=== PATIENT | male | born 1955 | race Caucasian/White ===

== ENCOUNTER 2017-02-24 17:18 | Inpatient (IN) | payer BC ==
[~2017-02-24] VITALS: Ht 170.2 cm; Wt 112.9 kg
--- NOTE | ~2017-02-24 | ECH ---
Transthoracic Echocardiography Report (TTE) Demographics Patient Name SABRINA DON Date of Study 02/26/2017 Patient Number [id number] Visit Number [id number] Date of 1955 Room Number 408 Accession Number [id number] Gender Male Age 61 year(s) Referring Marcela AGOSTO Commissions Specialist Barbara Garcia Physician Murray [facility] Thomas Jones MD Physician Interpreting Marcela AGOSTO Network Designer Physician Murray Supervising Ordering Physician Marcela AGOSTO MD/MARI Gao Nurse Stress Film Flat Inspector Conclusions Contractility Score Summary Normal Left Ventricular contractility was noted. Summary Technically adequate exam. The estimated left ventricular ejection fraction is 60%. The left ventricle is mildly dilated . Mild biatrial enlargement. The aortic valve is moderately sclerotic. The aortic valve appears to be bicuspid. There is mild to moderate aortic regurgitation by color Doppler. The ascending aorta appears moderately dilated. The maximum diameter measures 4.7 cm. Recommendation The patient will be given the results of this study by the physician who ordered the exam. Procedure Type of Study TTE procedure:Echo Complete SF. Procedure Date Date: 02/26/2017 Start: 01:39 PM Technical Quality: Adequate visualization Indications:Supraventricular Tachycardia. Appropriate Use Criteria: 9 Height: 67 inches Weight: 253 pounds BSA: 2.23 m Rhythm: NSR HR: 72 bpm BP: 122/65 mmHg M-Mode/2D Measurements LV Diastolic Dimension: 6.04 cm LV Systolic Dimension: 3.88 cm LV Septum Diastolic: 0.78 cm LV PW Diastolic: 0.84 cm AO Root Dimension: 3.33 cm Cardiac Output: 6.7 l/min LA Dimension: 2.3 cm Cardiac Index: 3 l/min*m RV Diastolic Dimension: 3.61 cm LA volume index: 40 ml/m LVOT: 2.06 cm LVOT VTI: 27.93 cm RV Base: 3 cm LV Stroke volume: 93.04 ml RV Mid: 2.1 cm LV Stroke volume index: 41.72 ml/m TAPSE: 3.5 cm TDI-S': 19 cm/s Doppler Measurements AV Peak Velocity: 2.2 m/s MV Peak E-Wave: 1.37 m/s AV Peak Gradient: 19.36 mmHg MV Peak A-Wave: 0.72 m/s AV Mean Gradient: 10.87 mmHg MV E/A Ratio: 1.91 LVOT Peak Velocity: 1.15 m/s MV P1/2t: 66.1 msec AV Area (Continuity):2.02 cm MV Deceleration Time: 198.9 msec TR Velocity:2.81 m/s MV Area (PHT): 3.33 cm TR Gradient:31.5 mmHg PV Peak Velocity: 1.04 m/s Estimated RAP:3 mmHg PV Peak Gradient: 4.34 mmHg Estimated RVSP: 35 mmHg Estimated PASP: 34.5 mmHg E' Septal Velocity: 0.1 m/s A' Septal Velocity: 0.09 m/s E' Lateral Velocity: 0.1 m/s A' Lateral Velocity: 0.13 m/s RA Area: 19.66 cm Findings Left Ventricle The left ventricle is mildly dilated . Diastolic assessment reveals normal relaxation. Right Ventricle Normal right ventricle structure and function. Left Atrium The left atrium is mildly dilated by LA volume index measurement. Right Atrium The right atrium is mildly dilated. Mitral Valve Normal mitral valve structure and function. Trivial mitral regurgitation by color Doppler. Aortic Valve The aortic valve is moderately sclerotic. The aortic valve appears to be functionally bicuspid. There is mild to moderate aortic regurgitation by color Doppler. Tricuspid Valve Normal tricuspid valve structure and function. Trivial tricuspid regurgitation by color Doppler. Normal pulmonary pressures. Pulmonic Valve Normal pulmonic valve structure and function. Pericardial Effusion No evidence of pericardial effusion. Miscellaneous The ascending aorta appears moderately dilated. The maximum diameter measures 4.7 cm. Pleural Effusion No evidence of pleural effusion. Contractility Score LV regional wall motion:(0-Non visualized 1-Normal 2-Hypokinesis 3-Akinesis 4-Dyskinesis 5-Aneurysm) Signature
[2017-03-01] MEDS ORDERED: OMEPRAZOLE40 MG PO (13:26)
[2017-03-01] MEDS ORDERED: NORCO 5-325 TA1 EACH PO (13:26)
[2017-03-01] MEDS ORDERED: TOPROL XL200 MG PO (13:26)
[2017-03-01] MEDS ORDERED: NEURONTIN DPS600 MG PO (13:26)
[2017-03-01] MEDS ORDERED: COUMADIN10 MG PO (13:27)
[2017-03-01] MEDS ORDERED: FLEXERIL-DPS10 MG PO (13:27)
[2017-03-01] MEDS ORDERED: COUMADIN7.5 MG PO (13:27)
[2017-03-01] MEDS ORDERED: COLACE-DPS100 MG PO (13:28)
[2017-03-01] MEDS ORDERED: FISH OIL OMEGA1 EAC1 PO (13:28)
[2017-03-01] MEDS ORDERED: VITAMIN B-1250 MG PO (13:29)
[2017-03-01] MEDS ORDERED: CLARITIN DPS10 MG PO (13:29)
[2017-03-01] MEDS ORDERED: IRON18 MG PO (13:29)
[2017-03-01] MEDS ORDERED: VITAMIN D31000 UNI1 PO (13:30)
[2017-03-01] MEDS ORDERED: CENTRUM SILVER1 EAC1 PO (13:30)
[2017-03-01] MEDS ORDERED: TAMBOCOR DPS50 MG PO (13:30)
--- NOTE | 2017-03-10 15:50 | DS ---
ADMIT: 02/24/2017 RM/LOC: 408 [facility] MR#: [id number] [address] [place] [id number] SABRINA DON [address] [place] [address] Discharge Summary SEX: M AGE: 61 : 1955 ADMISSION DATE: 02/24/2017 DISCHARGE DATE: 02/28/2017 ATTENDING AT TIME OF DISCHARGE: Marshall Osorio MD CONSULTATIONS: Cardiology. PROCEDURES: None. FINAL DIAGNOSES: 1. Postop ileus with possible small bowel obstruction. 2. Bicuspid aortic valve. 3. GERD (gastroesophageal reflux disease). 4. SVT (supraventricular tachycardia), A fib (atrial fibrillation) with RVR (rapid ventricular response). REASON FOR ADMISSION: The patient is a 61-year-old gentleman, overall was admitted for just not feeling well. Abdominal pain. Dehydration and intractable vomiting, ileus. Please see admission H and P for full details. HOSPITAL COURSE: The patient was admitted. Given IV fluid resuscitation, bowel rest, overall slowly and steadily improved and was able to eat a general diet prior to discharge. While hospitalized, did have an episode of SVT. Was seen in consultation by Cardiology. This resolved and did not recur during hospitalization. Plan is for followup with EP Cardiology at discharge. The patient overall felt safe and stable for discharge on day of discharge. DISCHARGE INSTRUCTIONS: Please see discharge MAR, which I have reviewed. For discharge meds, please see discharge MAR. He is going to be on: 1. Coumadin. 2. Flecainide 50 mg p.o. b.i.d. 3. Metoprolol. ADMIT: 02/24/2017 RM/LOC: 408 [facility] MR#: [id number] [address] [place], [place] [id number] SABRINA DON N [address] [place] [address] Discharge Summary SEX: M AGE: 61 : 1955 4. Hydrocodone. 5. Docusate. 6. Fish oil. 7. Iron. 8. Claritin. 9. Vitamin B1. 10.Vitamin D3. 11.Centrum Silver. 12.Gabapentin. He will see Dr. Guzman in 7-10 days. He will see [facility] per their plan to follow up with Cardiology, EP Cardiology as planned. Marshall Osorio MD/ pao JOB #: [id number] CC: Mekhi Guzman MD, Attending Physician Mekhi Guzman MD, Family Physician
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
== END 2017-02-28 11:05 | disposition home or self-care (01) | DRG 389 ==
LOC: 4PCU 17:18 → 5MS 17:18 → 4PCU 02-25 19:17
PROVIDERS: ADMIT Internal Medicine
DX: K56.60 Unspecified intestinal obstruction (principal); I47.1 Supraventricular tachycardia; G62.9 Polyneuropathy, unspecified; M48.02 Spinal stenosis, cervical region; Q23.1 Congenital insufficiency of aortic valve; I48.91 Unspecified atrial fibrillation; I10 Essential (primary) hypertension; E86.0 Dehydration; J44.9 Chronic obstructive pulmonary disease, unspecified; K21.9 Gastro-esophageal reflux disease without esophagitis; N40.0 Benign prostatic hyperplasia without lower urinary tract symptoms; M19.90 Unspecified osteoarthritis, unspecified site; G47.33 Obstructive sleep apnea (adult) (pediatric); K44.9 Diaphragmatic hernia without obstruction or gangrene; M16.10 Unilateral primary osteoarthritis, unspecified hip; F12.90 Cannabis use, unspecified, uncomplicated; Z79.01 Long term (current) use of anticoagulants; Z98.890 Other specified postprocedural states